=== PATIENT | female | born 1965 | race Asian ===

== ENCOUNTER 2023-01-28 22:41 | Inpatient (IN) | payer BC ==
[~2023-01-28] VITALS: Ht 162.6 cm; Wt 74.2 kg
[2023-01-29 00:11] LABS: BASOPHILS % 0.5 % (0.0-2.0); EOSINOPHILS % 3.6 % (0.0-5.0); HEMATOCRIT. 42.3 % (36.0-48.0); HEMOGLOBIN. 14.1 g/dL (12.0-16.0); LYMPHOCYTES % 30.9 % (20.0-50.0); MEAN CORPUSCULAR HEMOGLOBIN 29.8 pg (28.0-32.0); MEAN CORPUSCULAR VOLUME 89.3 fL (81.0-99.0); MEAN PLATELET VOLUME 6.9 fl (7.4-10.4); MONOCYTES % 8.4 % (2.0-8.0); NEUTROPHILS % 56.6 % (40.0-76.0); PLATELET 323 x1000/uL (130-400); RED BLOOD CELL COUNT 4.73 mill/uL (4.2-5.4); RED CELL DISTRIBUTION WIDTH 13.9 % (11.6-14.6)
[2023-01-29 00:20] LABS: CHLORIDE 104 mEq/L (98-107)
[2023-01-29 00:23] LABS: INR 0.9; PARTIAL THROMBOPLASTIN TIME 27.3 sec (23.4-31.0); PROTHROMBIN TIME 10.2 sec (9.6-11.0)
[2023-01-29 00:44] LABS: CLARITY URINE CLEAR (CLEAR); COLOR URINE YELLOW (YELLOW); KETONES URINE NEGATIVE (NEGATIVE); LEUKOCYTE ESTERASE URINE NEGATIVE (NEGATIVE); NITRITE URINE NEGATIVE (NEGATIVE); OCCULT BLOOD URINE 2+ (NEGATIVE); PROTEIN URINE 1+ (NEGATIVE); SPECIFIC GRAVITY URINE 1.021 (1.005-1.030); UROBILINOGEN URINE 0.2 E.U./dL (0.2-1.0)
[2023-01-29] MEDS ORDERED: ASPIRIN 81MG TABLET PO ONE (04:00)
[2023-01-29] MEDS ORDERED: NITROGLYCERIN 0.4MG TABLET SL SL PRN ×2 (04:00→06:45)
[2023-01-29] MEDS ORDERED: ENOXAPARIN 80MG/0.8ML SYR SUBCUT ONE (04:30)
[2023-01-29 04:52] LABS: D-DIMER 0.39 mg/L FEU (<0.50); PARTIAL THROMBOPLASTIN TIME 28.8 sec (23.4-31.0); PROTHROMBIN TIME 10.7 sec (9.6-11.0)
[2023-01-29] MEDS ORDERED: MAGNESIUM/ALUMINUM HYDROXIDE/SIMETHICONE 30ML UDC PO PRN (06:45)
[2023-01-29] MEDS ORDERED: KETOROLAC 15MG/ML VIAL IV PRN (06:45)
[2023-01-29] MEDS ORDERED: ONDANSETRON HCL 4MG/2ML INJ IV PRN (06:45)
[2023-01-29] MEDS ORDERED: ACETAMINOPHEN 325MG TABLET PO PRN ×3 (06:45→12:45)
[2023-01-29] MEDS ORDERED: DOCUSATE SODIUM 100MG CAPSULE PO PRN (06:45)
[2023-01-29] MEDS ORDERED: ZOLPIDEM TARTRATE 5MG TABLET PO PRN (06:45)
[2023-01-29] MEDS ORDERED: GUAIFENESIN 200MG/10ML SUGAR FREE UDC PO PRN (06:45)
[2023-01-29] MEDS ORDERED: AMLODIPINE 5MG TABLET PO SCH (06:45)
[2023-01-29] MEDS ORDERED: CLONIDINE 0.1MG TABLET PO PRN (06:45)
[2023-01-29] MEDS ORDERED: IPRATROPIUM/ALBUTEROL 0.5-3(2.5)MG/3ML NEB NEB PRN (06:45)
[2023-01-29] MEDS ORDERED: IOHEXOL-350 100 ML BOTTLE ONE (07:09)
[2023-01-29] MEDS: NITROGLYCERIN OINT 1GM/INCH UDPKT TD SCH ×3 (07:43→21:36)
[2023-01-29 07:55] LABS: T4 FREE 0.92 ng/dL (0.76-1.46)
[2023-01-29] MEDS ORDERED: LISINOPRIL 20MG TABLET PO SCH (09:00)
[2023-01-29] MEDS: FAMOTIDINE 20MG TABLET PO SCH ×2 (09:00→21:36)
[2023-01-29 09:06] LABS: *AMPHETAMINES SCREEN URINE NEGATIVE (NEGATIVE); *BARBITURATES SCREEN URINE NEGATIVE (NEGATIVE); *BENZODIAZEPINES SCREEN URINE NEGATIVE (NEGATIVE); *COCAINE SCREEN URINE NEGATIVE (NEGATIVE); CANNABINOID URINE SCREEN NEGATIVE (NEGATIVE); METHADONE URINE SCREEN NEGATIVE (NEGATIVE); OPIATES URINE SCREEN NEGATIVE (NEGATIVE); PHENCYCLIDINE URINE SCREEN NEGATIVE (NEGATIVE)
[2023-01-29 09:13] LABS: VITAMIN B12 SERUM 663 pg/mL (211-911)
[2023-01-29] MEDS: LISINOPRIL 10MG TABLET PO SCH ×2 (10:28→21:00)
[2023-01-29] MEDS ORDERED: IODIXANOL 320MG/ML 100 ML BOTTLE IV ONE (10:39)
[2023-01-29] MEDS ORDERED: DIPHENHYDRAMINE 50MG/ML VIAL ONE (10:39)
[2023-01-29] MEDS ORDERED: VERAPAMIL HCL 2.5 MG/1 ML 2ML VIAL IV ONE (10:39)
[2023-01-29] MEDS ORDERED: FENTANYL CITRATE/PF 50MCG/ML 2ML VIAL ONE (10:40)
[2023-01-29] MEDS ORDERED: LIDOCAINE HCL/PF 2% 20MG/ML 5 ML/VIAL ONE (10:40)
[2023-01-29] MEDS ORDERED: MIDAZOLAM HCL 2 MG/2 ML VIAL ONE (10:40)
[2023-01-29] MEDS ORDERED: HEPARIN 1000 UNITS/ML 10ML ONE (10:40)
[2023-01-29] MEDS ORDERED: ATROPINE SULFATE 1MG/10ML SYR IV PRN (12:45)
[2023-01-29 17:00] VITALS: BP 109/66
[2023-01-29] MEDS ORDERED: ENOXAPARIN 80MG/0.8ML SYR SUBCUT SCH (18:00)
[2023-01-29] MEDS ORDERED: MECL-217 PO (18:39)
[2023-01-29 20:00] VITALS: BP 95/63
[2023-01-29] MEDS: METOPROLOL TARTRATE 25MG TABLET PO SCH (21:00)
[2023-01-29] MEDS ORDERED: FLECAINIDE 50MG TABLET PO SCH (21:00)
[2023-01-29] MEDS: ATORVASTATIN CALCIUM 20MG TABLET PO SCH (21:35)
[2023-01-30] VITALS: BP 93/58
[2023-01-30 04:00] VITALS: BP 102/64
[2023-01-30] MEDS: NITROGLYCERIN OINT 1GM/INCH UDPKT TD SCH ×2 (06:00→23:14)
[2023-01-30 06:35] LABS: BASOPHILS % 0.5 % (0.0-2.0); EOSINOPHILS % 2.5 % (0.0-5.0); HEMATOCRIT. 38.8 % (36.0-48.0); HEMOGLOBIN. 13.5 g/dL (12.0-16.0); LYMPHOCYTES % 26.2 % (20.0-50.0); MEAN CORPUSCULAR HEMOGLOBIN 30.6 pg (28.0-32.0); MEAN CORPUSCULAR VOLUME 88.2 fL (81.0-99.0); MEAN PLATELET VOLUME 6.7 fl (7.4-10.4); MONOCYTES % 8.2 % (2.0-8.0); NEUTROPHILS % 62.6 % (40.0-76.0); PLATELET 303 x1000/uL (130-400); RED CELL DISTRIBUTION WIDTH 13.5 % (11.6-14.6)
[2023-01-30 06:54] LABS: CHLORIDE 107 mEq/L (98-107)
[2023-01-30 08:00] VITALS: BP 92/61
[2023-01-30] MEDS ORDERED: ASPIRIN 325MG EC TABLET PO SCH (09:00)
[2023-01-30] MEDS ORDERED: FLECAINIDE 50MG TABLET PO SCH (09:00)
[2023-01-30] MEDS: ASPIRIN 81MG TABLET PO SCH (09:14)
[2023-01-30] MEDS: FAMOTIDINE 20MG TABLET PO SCH ×2 (09:17→20:33)
[2023-01-30] MEDS: ENOXAPARIN 40MG/0.4ML SYR SUBCUT SCH (09:17)
[2023-01-30] MEDS ORDERED: ATOR20TA PO (10:37)
[2023-01-30] MEDS ORDERED: METO-396 MT (10:37)
[2023-01-30] MEDS ORDERED: ASPI-1160 PO (10:37)
[2023-01-30 12:00] VITALS: BP 112/71
[2023-01-30 16:00] VITALS: BP 88/59
[2023-01-30] MEDS ORDERED: SODIUM CHLORIDE 0.9% 500 ML IV ONE (16:45)
[2023-01-30 20:00] VITALS: BP 103/65
[2023-01-30] MEDS: ATORVASTATIN CALCIUM 20MG TABLET PO SCH (20:33)
[2023-01-30] MEDS: FLECAINIDE 50MG TABLET PO SCH (20:34)
[2023-01-30] MEDS: METOPROLOL TARTRATE 25MG TABLET PO SCH (21:00)
[2023-01-31] VITALS: BP 97/62
[2023-01-31 04:00] VITALS: BP 119/71
[2023-01-31] MEDS: NITROGLYCERIN OINT 1GM/INCH UDPKT TD SCH (06:00)
[2023-01-31 08:33] VITALS: BP 123/74
[2023-01-31] MEDS: ASPIRIN 81MG TABLET PO SCH (08:36)
[2023-01-31] MEDS: FAMOTIDINE 20MG TABLET PO SCH (08:36)
[2023-01-31] MEDS: METOPROLOL TARTRATE 25MG TABLET PO SCH (08:36)
[2023-01-31] MEDS: FLECAINIDE 50MG TABLET PO SCH (08:38)
[2023-01-31] MEDS: ENOXAPARIN 40MG/0.4ML SYR SUBCUT SCH (08:45)
[2023-01-31 11:49] VITALS: BP 123/74
== END 2023-01-31 13:00 | disposition home or self-care (01) | DRG 281 ==
LOC: ER 22:41 → 3WST 01-29 05:53 → EDBEDREQSVC 01-29 07:43 → ER 01-29 10:34
PROVIDERS: ADMIT Internal Medicine; ATTEND Internal Medicine
PROC: 4A023N7 Measurement of Cardiac Sampling and Pressure, Left Heart, Percutaneous Approach (ICD-10-PCS; principal; 2023-01-29)
PROC: B211YZZ Fluoroscopy of Multiple Coronary Arteries using Other Contrast (ICD-10-PCS; 2023-01-29)
DX: I25.10 Atherosclerotic heart disease of native coronary artery without angina pectoris (principal); I21.A1 Myocardial infarction type 2; I47.1 Supraventricular tachycardia; E78.5 Hyperlipidemia, unspecified; E11.9 Type 2 diabetes mellitus without complications; I48.0 Paroxysmal atrial fibrillation; Z79.82 Long term (current) use of aspirin; Z91.013 Allergy to seafood
CPT/HCPCS: 36415; 71045; 71275; 80048; 80053; 80061; 80305; 81003; 82607; 82746; 83036; 83540; 83550; 83605; 83880; 84145; 84439; 84443; 84484; 85025; 85379; 85651; 87426; 93005; 93306; 93458; 93970; 99291; C1769; C1887; C1893; C9803; J1200; J1644; J1650; J2250; J3010; J3490; Q9967